=== PATIENT | female | born 1990 | race Caucasian/White ===

== ENCOUNTER 2016-07-30 18:53 | Emergency (ER) | payer MEDICAID ==
[~2016-07-30] VITALS: Ht 157.5 cm; Wt 53.5 kg
[~2016-07-30 18:53] MED LIST: IBUP-1542 PO
[2016-07-30 19:24] VITALS: Ht 157.5 cm; Wt 53.5 kg
[2016-07-30] MEDS ORDERED: ALBU8.5H3 INH (19:36)
[2016-07-30] MEDS ORDERED: IBUP-1542 PO (19:36)
[2016-07-30] MEDS ORDERED: GUAI473L22 PO (19:36)
[2016-07-30] MEDS ORDERED: CETI10CA PO (19:36)
--- NOTE | 2016-07-30 19:43 | ERD ---
ER Documentation Chief Complaint Date/Time DATE: 07/30/16 TIME: 19:41 Chief Complaint Cough for 3 days and CWP that started Thursday HPI 26-year-old female presents here in emergency department for complaints of cough for 3 days, patient has been having dry cough, does not cough up any phlegm or blood. Patient does not have any shortness breath or wheezing. Patient 's complaining of chest wall pain when coughing, may have the pain whenever he she coughs, described it as sharp pain, 4/10 scale, Rocephin coughing. Patient denies any dyspnea on exertion or dyspnea on lying down. Patient denies any fever or chills. Patient denies any palpitations or irregular heartbeat. Patient denies any sick contact. Patient did not take any medications or with symptoms. ROS All systems reviewed and are negative except as per history of present illness. Medications Home Meds Active Scripts Cetirizine Hcl* (Zyrtec*) 10 Mg Capsule, 10 MG PO DAILY, #30 TAB.CHEW Prov:AUDREY SAMS NP 07/30/16 Ibuprofen* (Motrin*) 600 Mg Tab, 600 MG PO Q6H Y for PAIN AND OR ELEVATED TEMP, #30 TAB Prov:AUDREY SAMS NP 07/30/16 Albuterol Sulfate* (Proair HFA*) 8.5 Gm Hfa.aer.ad, 2 PUFF INH Q4H Y for WHEEZING AND SOB, #1 INHALER Prov:AUDREY SAMS NP 07/30/16 Guaifenesin-Codeine Phosphate* (Guaifenesin* AC Cough Syrup) 473 Ml Liquid, 10 ML PO Q4H Y for COUGH, #120 ML Prov:AUDREY SAMS NP 07/30/16 Ibuprofen* (Ibuprofen*) 600 Mg Tab, 600 MG PO Q6, #20 0 Refills Prov:LON KESSLER MD 04/17/15 Allergies Allergies: Coded Allergies: No Known Allergy (Unverified , 04/16/15) PMhx/Soc Medical and Surgical Hx: pt denies Medical Hx, pt denies Surgical Hx FmHx Family History: No coronary disease, No diabetes, No other Physical Exam Vitals Vital Signs Date Time Temp Pulse Resp B/P Pulse Ox O2 Delivery O2 Flow Rate FiO2 07/30/16 19:24 98.5 97 18 143/67 100 Physical Exam GENERAL: The patient is well developed and appropriate for usual state of health, in no apparent distress. CHEST: Clear to auscultation bilaterally. There are no rales, wheezes or rhonchi. HEART: Regular rate and rhythm. No murmurs, clicks, rubs or gallops. No S3 or S4. ABDOMEN: Soft, nontender and nondistended. Good bowel sounds. No rebound or guarding. No gross peritonitis. No gross organomegaly or masses. No Tapia sign or McBurney point tenderness. BACK: No midline or flank tenderness. EXTREMITIES: Equal pulses bilaterally. There is no peripheral clubbing, cyanosis or edema. No focal swelling or erythema. Full range of motion. Grossly neurovascularly intact. NEURO: Alert and oriented. Cranial nerves 2-12 intact. Motor strength in all 4 extremities with 5/5 strength. Sensation grossly intact. Normal speech and gait. SKIN: There is no apparent rash or petechia. The skin is warm and dry. HEMATOLOGIC AND LYMPHATIC: There is no evidence of excessive bruising or lymphedema. No gross cervical, axillary, or inguinal lymphadenopathy. Procedures/MDM Medical Decision Making: Patient symptoms are most likely consistent with acute bronchitis, which viral in origin. There is low suspicion for Pneumonia at this time since patients lungs sounds are clear, patient O2 saturation is normal and patient doesnt show any respiratory distress. Radiology exam is not indicated at this time. There is low suspicion for other cardiopulmonary emergencies at this time such as CHF, Pulmonary Embolism, Pneumothorax, Aortic Aneurysm or any other cardiopulmonary emergencies at this time. There is low suspicion for sepsis. Patient appears well and is hemodynamically stable. Patient does not have any fever. Disposition: Home. Condition: Stable Prescriptions: Guaifenesin with codeine, Zyrtec, ibuprofen, albuterol Instructions: Patient is advised to take medications as prescribed. Patient is advised to rest. Patient advised to increase fluid intake, do humidifier at home and if possible, do salt water gargles. Patient is advised that if symptoms are worse, shortness of breath, uncontrolled fever, stridor, vomiting, worst signs and symptoms to return to emergency department immediately. Otherwise, patient is advised to follow up with primary doctor in 5-7 days. Departure Diagnosis: Primary Impression: Acute bronchitis Bronchitis organism: unspecified organism Qualified Code: J20.9 - Acute bronchitis, unspecified organism Condition: Stable Patient Instructions: Bronchitis, No Antibiotic (Adult) AUDREY SAMS NP Jul 30, 2016 19:43
== END 2016-07-30 19:40 | disposition home or self-care (01) ==
LOC: E/R 18:53
DX: J20.9 Acute bronchitis, unspecified (principal)
CPT/HCPCS: 99283

== ENCOUNTER 2017-03-03 19:01 | Emergency (ER) | payer MEDICAID ==
[~2017-03-03] VITALS: Ht 160 cm; Wt 52.5 kg
[~2017-03-03 19:01] MED LIST changes: +ALBU8.5H3 INH; +CETI10CA PO; +GUAI473L22 PO
[2017-03-03 19:08] VITALS: Ht 160 cm; Wt 52.5 kg
--- NOTE | 2017-03-03 22:26 | ERD ---
ER Documentation Chief Complaint Date/Time DATE: 03/03/17 TIME: 22:21 Chief Complaint r ear itching for 2 days HPI This 26-year-old female presents to emergency department with 2 day history of right ear itching, nasal congestion, postnasal drip. Patient denies history of seasonal allergies, denies asthma, reports that she has pressure behind her eyes and in her face. She reports a mild headache has taken no medication for symptomatic relief, reports normal fluid intake. Denies nausea, vomiting, fever , chills, change in hearing or cough. ROS All systems reviewed and are negative except as per history of present illness. Medications Home Meds Active Scripts Cetirizine Hcl* (Zyrtec*) 10 Mg Capsule, 10 MG PO DAILY, #30 TAB.CHEW Prov:AUDREY SAMS NP 07/30/16 Ibuprofen* (Motrin*) 600 Mg Tab, 600 MG PO Q6H Y for PAIN AND OR ELEVATED TEMP, #30 TAB Prov:AUDREY SAMS NP 07/30/16 Albuterol Sulfate* (Proair HFA*) 8.5 Gm Hfa.aer.ad, 2 PUFF INH Q4H Y for WHEEZING AND SOB, #1 INHALER Prov:AUDREY SAMS NP 07/30/16 Guaifenesin-Codeine Phosphate* (Guaifenesin* AC Cough Syrup) 473 Ml Liquid, 10 ML PO Q4H Y for COUGH, #120 ML Prov:AUDREY SAMS NP 07/30/16 Ibuprofen* (Ibuprofen*) 600 Mg Tab, 600 MG PO Q6, #20 0 Refills Prov:LON KESSLER MD 04/17/15 Allergies Allergies: Coded Allergies: No Known Allergy (Unverified , 04/16/15) Physical Exam Vitals Vital Signs Date Time Temp Pulse Resp B/P Pulse Ox O2 Delivery O2 Flow Rate FiO2 03/03/17 19:08 99.1 82 18 154/97 100 Physical Exam Const: Well-nourished well-hydrated well-appearing no acute distress Head: Atraumatic Eyes: Normal Conjunctiva PERRLA, EOMI ENT: Membrane on right is erythemic with serous fluid noted, tympanic membrane on left is translucent partial retraction. Nasal mucosa is edematous, turbinates pale +2 clear nasal charge noted. Neck: Resp: Respirations even and unlabored no respiratory Cardio: Abd: Skin: Back: Ext: Neur: Awake and alert Psych: Normal Mood and Affect Procedures/MDM 26-year-old female presents to emergency department with 2 day history of right ear itching postnasal drip nasal congestion without history of seasonal allergies. I have low suspicion for a bacterial sinusitis, bronchitis, or upper respiratory infection physical exam and history supports a allergic rhinitis patient will be discharged home with Lucille, rosaline, and Aung. Patient is stable with no new complaints during ER course, clinically there is no current evidence to suggest meningitis, sepsis, acute abdomen, or any other emergent condition appearing to require further evaluation or hospitalization. I feel the patient is stable for discharge at this time. I have discussed results, examination findings, the treatment plan with the patient and family present prior to discharge. Indications for emergent reevaluation, side effects of medication were also discussed. All questions were answered. Patient verbalizes understanding and agrees with plan of care. Departure Diagnosis: Primary Impression: Rhinitis, allergic Chronicity: acute Allergic rhinitis trigger: unspecified Allergic rhinitis seasonality: unspecified seasonality Qualified Code: J30.9 - Acute allergic rhinitis, unspecified seasonality, unspecified trigger Patient Instructions: Allergic Rhinitis Referrals: [facility] Additional Instructions: Thank you for for coming to [facility] for your care today. Please ask your nurse or provider if you have questions about your care today and do not leave until all your questions have been answered. Please use any medications given as directed and follow-up with your doctor (or the doctor you were referred to) in the next 2-3 days. If you do not have a primary care doctor you may follow up at the [facility] (listed below). You may also use motrin and tylenol as needed for fever and/or pain unless instructed otherwise by your provider or nurse. Indications for more urgent follow-up have been discussed, but you may return to the Emergency Department at ANY time for any worrisome or worsening symptoms. If you have abdominal pain, please know that no test or exam you received is perfect and you should follow up within 8 hours for continued pain. If you had any imaging studies today, such as an X-Ray or CT Scan, these studies will be reviewed later by a radiologist. You will be called if there are important findings that were not identified today, so make sure the contact information you provided at registration is correct. If you received any narcotic pain control medicine today, such as Vicodin, Morphine or Dilaudid, your coordination and judgment may be affected for a number of hours. Please do not drive or operate heavy machinery, and you may want someone to assist you at home. If you were given a prescription for narcotic medication, be aware that it is very addictive- use sparingly and only if necessary. MICHAEL BURKS Mar 03, 2017 22:26
[2017-03-03] MEDS ORDERED: LORA10CA PO (22:27)
[2017-03-03] MEDS ORDERED: sudafed PO (22:29)
[2017-03-03] MEDS ORDERED: FLUT9.9S NASAL (22:29)
== END 2017-03-03 22:42 | disposition home or self-care (01) ==
LOC: FTE 19:01
DX: J30.9 Allergic rhinitis, unspecified (principal)
CPT/HCPCS: 99283